=== PATIENT | male | born 1985 | race Caucasian/White ===

== ENCOUNTER 2024-06-08 00:02 | Emergency (ER) | payer MEDICAID, SELFPAY ==
[2024-06-08 00:05] VITALS: PULSE 0
[2024-06-08 00:07] VITALS: BMI 24.0
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
== END 2024-06-08 04:29 | disposition expired ==
LOC: HO.ED 04:06
PROVIDERS: Emergency Provider Emergency Medicine
DX: S21.332A Puncture wound without foreign body of left front wall of thorax with penetration into thoracic cavity, initial encounter (principal); I46.9 Cardiac arrest, cause unspecified; W32.0XXA Accidental handgun discharge, initial encounter; Y93.89 Activity, other specified; Y92.89 Other specified places as the place of occurrence of the external cause; Y99.8 Other external cause status
CPT/HCPCS: 99283; 99284; J0171